=== PATIENT | male | born 1980 | race Caucasian/White ===

== ENCOUNTER 2016-09-02 18:06 | Emergency (ER) | payer SELFPAY ==
[~2016-09-02] VITALS: Ht 162.6 cm; Wt 76.0 kg
[~2016-09-02 18:06] MED LIST: NO MEDS
[2016-09-02 18:10] VITALS: Ht 162.6 cm; Wt 76.0 kg
--- NOTE | 2016-09-02 18:35 | ERA ---
ER Documentation Chief Complaint Date/Time DATE: 09/02/16 TIME: 18:34 Chief Complaint Back pain HPI The patient is a 35-year-old male, presenting to the ER because of back pain intermittently for the last 4 days, worse today. 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 He denies fever, chills, neck pain, chest pain, abdominal pain, vomiting, dysuria, diarrhea. He does nor smoke does not drink nor use illicit Past medical history: Chronic low back pain Past surgical history: None ROS All systems reviewed and are negative except as per history of present illness. Medications Home Meds Active Scripts Ibuprofen* (Motrin*) 600 Mg Tab, 600 MG PO Q6H Y for PAIN AND OR ELEVATED TEMP, #30 TAB Prov:KASSY PEOPLES MD 09/02/16 Carisoprodol* (Soma*) 350 Mg Tablet, 350 MG PO TID Y for MUSCLE SPASMS, #15 TAB Prov:KASSY PEOPLES MD 09/02/16 Hydrocodone/Acetaminophen (Lee 10-325 Tablet) 1 Each Tablet, 1 TAB PO Q6H Y for PAIN, #7 TAB Prov:KASSY PEOPLES MD 09/02/16 Reported Medications [No Meds] No Conflict Check 10/26/09 Allergies Allergies: Coded Allergies: No Known Allergies (Verified Allergy, Mild, 10/26/09) PMhx/Soc History of Surgery: No Anesthesia Reaction: No Hx Neurological Disorder: No Hx Respiratory Disorders: No Hx Cardiac Disorders: No Hx Psychiatric Problems: No Hx Miscellaneous Medical Probl: No Hx Alcohol Use: No Hx Substance Use: No Hx Tobacco Use: No Physical Exam Vitals Vital Signs Date Time Temp Pulse Resp B/P Pulse Ox O2 Delivery O2 Flow Rate FiO2 09/02/16 18:10 98.1 90 18 153/85 100 Physical Exam Const: No acute distress. Head: Atraumatic. Eyes: Normal Conjunctiva. ENT: Normal External Ears, Nose and Mouth. Neck: Full range of motion. No meningismus. Resp: Clear to auscultation bilaterally. Cardio: Regular rate and rhythm, no murmurs. Abd: Soft, non distended, normal bowel sounds, non tender. Lumbar tenderness erythema nor warm to touch Skin: No petechiae or rashes. Back: No midline or flank tenderness. Ext: No cyanosis, or edema. Neur: Awake and alert. No focal deficit Psych: Normal Mood and Affect. Results 24 hrs Current Medications Medications (Trade) Dose Ordered Sig/Qi Route PRN Reason Start Time Stop Time Status Last Admin Dose Admin Ketorolac Tromethamine (Toradol) 60 mg ONCE STAT IM 09/02/16 18:43 09/02/16 18:44 DC 09/02/16 18:59 Morphine Sulfate (morphine) 4 mg ONCE ONCE IM 09/02/16 19:00 09/02/16 19:01 DC 09/02/16 18:54 Ondansetron HCl (Zofran Odt) 4 mg ONCE STAT ODT 09/02/16 18:43 09/02/16 18:44 DC 09/02/16 18:54 Procedures/MDM MEDICAL MAKING DECISION: The patient is a 35-year-old male, presenting with acute on chronic low back pain. He was treated with Toradol 60 mg IM, morphine 4 mg IM for pain and Zofran ODT for nausea with good response. The differential diagnoses considered include but are not limited to caudal equina syndrome, spinal abscess, DJD, diskitis, lumbar radiculopathy. Departure Diagnosis: Primary Impression: Acute exacerbation of chronic low back pain Condition: Good Comments He was discharged with Chris Reynolds Motrin I discussed the findings with the patient. I advised the patient to follow-up with the primary physician in about 1-2 days, sooner if needed and return if any concern. He is advised that if the pain is persistent, he will need MRI for further evaluation The patient's blood pressure was elevated (>120/80) but appears stable without evidence of hypertension emergency or urgency. The patient was counseled about the risks of hypertension and urged to pursue outpatient monitoring and therapy within a week with their primary care physician. KASSY PEOPLES MD Sep 02, 2016 18:35
[2016-09-02] MEDS ORDERED: ONDANSETRON (ODT) 4 MG TAB ODT STA (18:43)
[2016-09-02] MEDS ORDERED: IBUP-1542 PO (18:45)
[2016-09-02] MEDS ORDERED: CARI350T PO (18:45)
[2016-09-02] MEDS ORDERED: HYDR-902 PO (18:45)
[2016-09-02] MEDS: KETOROLAC 60 MG INJ IM STA ×2 (18:54→18:59)
[2016-09-02] MEDS ORDERED: morphine 10 MG INJ IM ONE (19:00)
[2016-09-02 19:25] VITALS: BP 148/80; PULSE 69; RESP 18; TEMP 97.8
== END 2016-09-02 19:25 | disposition home or self-care (01) ==
LOC: FTE 18:06
DX: M54.5 Low back pain (principal)
CPT/HCPCS: J1885; J2270; 96372

== ENCOUNTER 2016-09-17 12:06 | Emergency (ER) | payer MEDICAID ==
[~2016-09-17] VITALS: Ht 175.3 cm; Wt 74.0 kg
[~2016-09-17 12:06] MED LIST changes: +CARI350T PO; +HYDR-902 PO; +IBUP-1542 PO
[2016-09-17 12:08] VITALS: Ht 175.3 cm; Wt 74.0 kg
[2016-09-17] MEDS ORDERED: ONDANSETRON (ODT) 4 MG TAB ODT STA (12:32)
--- NOTE | 2016-09-17 12:41 | ERA ---
ER Documentation Chief Complaint Date/Time DATE: 09/17/16 TIME: 12:34 Chief Complaint COUGH X 2 WEEKS HPI Patient is a 35-year-old male who presents with a chronic cough 2-3 weeks. 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 Patient states that he has chronic exposure to mold and 1 of his coworkers was just recently diagnosed with a lung infection. Cough is described as dry and patient has not coughed since have been in his presence. Patient denies any aggravating or relieving factors. Patient denies drug or alcohol use, fever, chest pain with exertion, headache, hemoptysis, sputum production, or epistaxis. Patient also complains of abdominal pain. Patient's abdominal pain has been interpreted as nausea and inability to sustain an appetite. Patient's symptoms have been sustained for 2 weeks and have been more or less constant. Patient denies any vomiting or abdominal tenderness. Patient denies any alleviating or aggravating factors. Patient denies any diarrhea, constipation, changes in bowel or bladder habits. ROS All systems reviewed and are negative except as per history of present illness. Medications Home Meds Active Scripts Benzonatate* (Tessalon Perle*) 100 Mg Capsule, 100 MG PO Q8H Y for COUGH for 3 Days, CAP Prov:KASSY AYALA PA-C 09/17/16 Ondansetron (Ondansetron Odt) 4 Mg Tab.rapdis, 4 MG PO Q6H Y for NAUSEA AND/OR VOMITING, #10 TAB Prov:KASSY AYALA PA-C 09/17/16 Ibuprofen* (Motrin*) 600 Mg Tab, 600 MG PO Q6H Y for PAIN AND OR ELEVATED TEMP, #30 TAB Prov:KASSY PEOPLES MD 09/02/16 Carisoprodol* (Soma*) 350 Mg Tablet, 350 MG PO TID Y for MUSCLE SPASMS, #15 TAB Prov:KASSY PEOPLES MD 09/02/16 Hydrocodone/Acetaminophen ([place]haw 10-325 Tablet) 1 Each Tablet, 1 TAB PO Q6H Y for PAIN, #7 TAB Prov:KASSY PEOPLES MD 09/02/16 Reported Medications [No Meds] No Conflict Check 10/26/09 Allergies Allergies: Coded Allergies: No Known Allergies (Verified Allergy, Mild, 10/26/09) PMhx/Soc History of Surgery: No Anesthesia Reaction: No Hx Neurological Disorder: No Hx Respiratory Disorders: No Hx Cardiac Disorders: No Hx Psychiatric Problems: No Hx Miscellaneous Medical Probl: No Hx Alcohol Use: No Hx Substance Use: No Hx Tobacco Use: No Physical Exam Vitals Vital Signs Date Time Temp Pulse Resp B/P Pulse Ox O2 Delivery O2 Flow Rate FiO2 09/17/16 12:08 98.2 69 18 120/77 100 Physical Exam Const: Well-appearing 35-year-old male presenting with his girlfriend. Head: Atraumatic Eyes: Normal Conjunctiva ENT: Normal External Ears, Nose and Mouth. Neck: Full range of motion..~ No meningismus. Resp: Clear to auscultation bilaterally Cardio: Regular rate and rhythm, no murmurs Abd: Soft, non tender, non distended. Normal bowel sounds Skin: No petechiae or rashes Back: No midline or flank tenderness Ext: No cyanosis, or edema Neur: Awake and alert Psych: Normal Mood and Affect Results 24 hrs Current Medications Medications (Trade) Dose Ordered Sig/Qi Route PRN Reason Start Time Stop Time Status Last Admin Dose Admin Ondansetron HCl (Zofran Odt) 4 mg ONCE STAT ODT 09/17/16 12:32 09/17/16 12:34 DC 09/17/16 13:10 Procedures/MDM Patient's presenting with cough 2-3 weeks. Patient has chronic more exposure at work and 1 of his coworkers was recently diagnosed with a lung infection wants to be checked out. On examination of the chest the lung sounds were equal and clear in all lung wisdom bilaterally. Patient denies any fever as I suspect bacterial involvement at this time but due to the environmental exposure will go ahead and get chest x-ray to evaluate. Will discharge home with return precautions and Tessalon Perles for cough. Patient also complains of nausea and inability to give appetite. On examination of the abdomen there is no pulsatile abdominal mass found and there is no tenderness to palpation with normal bowel sounds in all 4 quadrants. Patient denies any nausea and I do not suspect infection at this time. Patient has been able to tolerate p.o.. Chest x-ray was negative. Will discharge home with Zofran for the nausea. Departure Condition: Stable Additional Instructions: Consider ibuprofen for further pain and inflammation relief. If symptoms worsen return to emergency department immediately. Follow-up with primary care provider the next 1-3 days. KASSY AYALA PA-C Sep 17, 2016 12:40
--- NOTE | 2016-09-17 13:22 | RADRPT ---
PROCEDURE: Chest radiograph series. CLINICAL INDICATION: Chronic cough. Shortness of breath. TECHNIQUE: PA and lateral chest x-ray. COMPARISON: None. FINDINGS: The cardiomediastinal silhouette is unremarkable. The lungs and costophrenic angles are clear. The o sseous structures are unremarkable. IMPRESSION: 1. Unremarkable chest radiograph series. RPTAT: AA .Junior Escamilla MD, MD Date Time Electronically viewed and signed by .Junior Escamilla MD, on 09/17/2016 13:22 .B/
[2016-09-17] MEDS ORDERED: ONDA4TAB14 PO (13:28)
[2016-09-17] MEDS ORDERED: BENZ100C70 PO (13:28)
== END 2016-09-17 13:36 | disposition home or self-care (01) ==
LOC: FTE 12:06
DX: R05 Cough (principal); R10.9 Unspecified abdominal pain; R11.0 Nausea
CPT/HCPCS: 71020; Z7502; Z7610

== ENCOUNTER 2016-11-28 21:50 | Emergency (ER) | payer MEDICAID, OTHER ==
[~2016-11-28] VITALS: Ht 172.7 cm; Wt 76.5 kg
[~2016-11-28 21:50] MED LIST changes: +BENZ100C70 PO; +ONDA4TAB14 PO
[2016-11-28 21:56] VITALS: Ht 172.7 cm; Wt 76.5 kg
--- NOTE | 2016-11-29 00:05 | RADRPT ---
PROCEDURE: XR Chest. CLINICAL INDICATION: Chest pain. TECHNIQUE: AP view of the chest was obtained. COMPARISON: 09/17/2016 FINDINGS: The cardiomediastinal silhouette is within normal limits. The lungs are clear. No signs of pleural f luid or pneumothorax are seen. The osseous structures and soft tissues are unremarkable. IMPRESSION: 1. No evidence for active cardiopulmonary disease. RPTAT: HGAS .Enoch Marc MD, MD Date Time Electronically viewed and signed by .Enoch Marc MD, MD on 11/29/2016 00:04 .S/
[2016-11-29] MEDS ORDERED: ALBU18HF INHALATION (00:15)
[2016-11-29] MEDS ORDERED: CYCL-319 PO (00:21)
[2016-11-29 00:36] VITALS: BP 129/86; PULSE 63
--- NOTE | 2016-11-29 01:30 | ERD ---
ER Documentation Chief Complaint Date/Time DATE: 11/29/16 TIME: Chief Complaint mid back pain x 3 months HPI This patient is a 36-year-old male presenting to the emergency department for upper bilateral back pain and also feeling of pain in his lungs especially when exerting himself which is been ongoing intermittently for the past 3 months. Symptoms are worsening. The patient states when he walks he feels there is a pain in his lungs bilaterally. He is not a smoker. He denies history of asthma or other pulmonary pathologies. The patient denies fevers, chills, chest pain, shortness of breath, or other symptoms currently. ROS All systems reviewed and are negative except as per history of present illness. Medications Home Meds Active Scripts Cyclobenzaprine Hcl* (Cyclobenzaprine Hcl*) 10 Mg Tablet, 10 MG PO TID, #15 TAB Prov:KALEB COCHRAN PA-C 11/29/16 Albuterol Sulfate* (Ventolin HFA*) 18 Gm Hfa.aer.ad, 2 PUFF INHALATION Q4H, #1 INHALER Prov:KALEB COCHRAN PA-C 11/29/16 Benzonatate* (Tessalon Perle*) 100 Mg Capsule, 100 MG PO Q8H Y for COUGH for 3 Days, CAP Prov:KASSY AYALA PA-C 09/17/16 Ondansetron (Ondansetron Odt) 4 Mg Tab.rapdis, 4 MG PO Q6H Y for NAUSEA AND/OR VOMITING, #10 TAB Prov:KASSY AYALA PA-C 09/17/16 Ibuprofen* (Motrin*) 600 Mg Tab, 600 MG PO Q6H Y for PAIN AND OR ELEVATED TEMP, #30 TAB Prov:KASSY PEOPLES MD 09/02/16 Carisoprodol* (Soma*) 350 Mg Tablet, 350 MG PO TID Y for MUSCLE SPASMS, #15 TAB Prov:KASSY PEOPLES MD 09/02/16 Hydrocodone/Acetaminophen (Amboy 10-325 Tablet) 1 Each Tablet, 1 TAB PO Q6H Y for PAIN, #7 TAB Prov:KASSY PEOPLES MD 09/02/16 Reported Medications [No Meds] No Conflict Check 10/26/09 Allergies Allergies: Coded Allergies: No Known Allergies (Verified Allergy, Mild, 11/28/16) PMhx/Soc Medical and Surgical Hx: pt denies Medical Hx, pt denies Surgical Hx History of Surgery: No Anesthesia Reaction: No Hx Neurological Disorder: No Hx Respiratory Disorders: No Hx Cardiac Disorders: No Hx Psychiatric Problems: No Hx Miscellaneous Medical Probl: No Hx Alcohol Use: No Hx Substance Use: No Hx Tobacco Use: No Smoking Status: Never smoker FmHx Noncontributory for chief complaint Physical Exam Vitals Vital Signs Date Time Temp Pulse Resp B/P Pulse Ox O2 Delivery O2 Flow Rate FiO2 11/29/16 00:36 63 129/86 99 Room Air 11/28/16 21:56 98.2 75 20 151/84 100 Physical Exam Const: Nontoxic, well-appearing male in no acute distress. Head: Atraumatic Eyes: Normal Conjunctiva ENT: Normal External Ears, Nose and Mouth. Neck: Full range of motion..~ No meningismus. Resp: Clear to auscultation bilaterally. No wheezing noted. No signs of respiratory distress. No crackles noted. Cardio: Regular rate and rhythm, no murmurs Abd: Soft, non tender, non distended. Normal bowel sounds Skin: No petechiae or rashes Back: No midline or flank tenderness Ext: No cyanosis, or edema Neur: Awake and alert Psych: Normal Mood and Affect Results 24 hrs [place] [id number] Radiology Main Line: [phone] DIAGNOSTIC IMAGING REPORT Patient: HERBERT RUSSO : 1980 Age: 36 Sex: M MR #: [id number] DOS: 11/28/16 0000 Ordering MD: KALEB COCHRAN PA-C Location: [facility] Room/Bed: PROCEDURE: XR Chest. CLINICAL INDICATION: Chest pain. TECHNIQUE: AP view of the chest was obtained. COMPARISON: 09/17/2016 FINDINGS: The cardiomediastinal silhouette is within normal limits. The lungs are clear. No signs of pleural fluid or pneumothorax are seen. The osseous structures and soft tissues are unremarkable. IMPRESSION: 1. No evidence for active cardiopulmonary disease. RPTAT: HGAS .Enoch Marc MD, MD Date Time Electronically viewed and signed by .Enoch Marc MD, MD on 11/29/2016 00: 04 .S/ CC: KALEB COCHRAN PA-C Procedures/MDM 36-year-old male presenting to the emergency department with complaints of pain in his lungs which is worse when walking. He also reports pain of the muscles of his upper back. The patient has had these symptoms in the past. The symptoms are chronic with a 3 month duration. Chest x-ray was negative for any acute abnormalities and was interpreted by the radiologist. Patient was given reassurance. Possible causes include anxiety reaction, asthma, back pain, and others. The patient is stable for outpatient management with a prescription for Flexeril and albuterol. His questions and concerns were addressed and he agreed with the discharge plan and diagnosis. I have low suspicion for acute coronary syndrome, pulmonary embolism, pneumothorax, pneumonia, bronchitis, septicemia, or other emergent conditions. The patient is advised to have very close follow-up with his primary care physician. Strict ER return precautions were discussed. Departure Diagnosis: Primary Impression: Shortness of breath Additional Impression: Back pain Condition: Fair Patient Instructions: Coping with Shortness of Breath: Controlling Stress, Back Pain (Acute Or Chronic) [facility] Usted se mathews hecho un examen mdico de control que le indica que no est en nicky condicin que requiera tratamiento urgente en el Departamento de Emergencia. Un estudio ms profundo y el tratamiento de nogueira condicin pueden esperar sin ningn riesgo hasta que usted sea atendida/o en el consultorio de nogueira mdico o nicky cl jennifer. Es responsabilidad suya arreglar nicky isael para el seguimiento del leti. MANEJO DE CONDICIONES NO URGENTES EN EL FUTURO 1) Si usted tiene un mdico de atencin primaria: Usted debera llamar a nogueira mdico de atencin primaria antes de venir al departamento de emergencia. Despus de las horas de consultorio, nogueira doctor o nogueira asociado/a est disponible por telfono. El mdico o enfermero de ginna en el servicio telefnico puede asesorarle por sebastián medio para atender el problema, o leti contrario se puede programar nicky isael. 2) Si usted no tiene un mdico de atencin primaria: Llame al mdico o clnica de referencia que aparece abajo saroj las horas de consultorio para hacer nicky isael para que le vean. CLINICAS: [facility] [phone] [facility] [phone] [facility] [phone] [address] [facility] [phone]. [facility] [phone] [address] [facility]. [phone] [address] Additional Instructions: No mas mejor en 2-3 santos, regresar. Mas peor en 24 horas, regresear rapidamente. Ir a doctor primario in 5-7 santos. Usar instrucciones cuando marcello medicamento. KALEB COCHRAN PA-C Nov 29, 2016 01:30
== END 2016-11-29 00:40 | disposition home or self-care (01) ==
LOC: E/R 21:50 → FTE 11-29 00:40
DX: R06.02 Shortness of breath (principal)
CPT/HCPCS: 71010

== ENCOUNTER 2017-10-14 18:56 | Emergency (ER) | END 2017-10-14 20:30 | disposition home or self-care (01) ==